=== PATIENT | male | born 1965 ===

== ENCOUNTER 2017-10-29 07:37 | Day surgery (SDC) | payer OTHER ==
[2017-10-29 08:08] VITALS: BMI 32.1
--- NOTE | 2017-10-29 09:16 | CP.SDSHP ---
Same Day Surgery H & P - History Proposed Procedure: colonoscopy Pre-Op Diagnosis: screening - Allergies Allergies: Allergies No Known Allergies Allergy (Verified 10/29/17 08:07) - Physical Exam General Appearance: NAD Vital Signs: Vital Signs 10/29/17 08:05 Temperature 97 F L Pulse Rate 66 Respiratory 19 Rate Blood Pressure 106/80 O2 Sat by Pulse 100 Oximetry Mental Status: Alert & Oriented x3 Neuro: WNL Heart: WNL Lungs: WNL GI: WNL - {Optional Preform as Required} Abdomen: WNL - Impression Pt. Evaluated Today:Candidate for Anesthesia & Procedure: Yes - Date & Time Date: 10/29/17 Time: 09:16 Short Stay Discharge - Short Stay Discharge Admitting Diagnosis/Reason for Visit: ENCOUNTER FOR SCREENING FOR MALIGNANT NEOPLASM OF Disposition: HOME/ ROUTINE
[2017-10-29] MEDS ORDERED: Propofol 10 mg/ml Inj (20 ML) ONE (09:51)
[2017-10-29] MEDS ORDERED: Lactated Ringer's 500 ML IV ONE ×2 (09:55→10:21)
[2017-10-29 10:43] VITALS: TEMP 98
[2017-10-29 11:41] VITALS: BP 127/76; PULSE 70; RESP 18; O2SAT 99
== END 2017-10-29 11:35 | disposition home or self-care (01) ==
LOC: C.ENDO 07:37
PROVIDERS: ATTEND Internal Medicine Gastroenterology
DX: Z12.11 Encounter for screening for malignant neoplasm of colon (principal); D12.4 Benign neoplasm of descending colon; D12.5 Benign neoplasm of sigmoid colon; K64.8 Other hemorrhoids
CPT/HCPCS: 45380; 45384; 88305; J2001; J2704; J7120